=== PATIENT | female | born 1990 | race Hispanic/Latino ===

== ENCOUNTER 2021-11-28 13:20 | Emergency (ER) | payer SELFPAY ==
[~2021-11-28] VITALS: Ht 157.5 cm; Wt 117.9 kg
[2021-11-28] MEDS ORDERED: KETOROLAC TROMETHAMINE 60 MG/2 ML VIAL IM ONE (14:15)
[2021-11-28] MEDS ORDERED: KETOROLAC TROMETHAMINE 30 MG/ML VIAL ONE (14:39)
[2021-11-28] MEDS ORDERED: LIDOCAINE1 EAC1 EXT (14:48)
[2021-11-29] MEDS ORDERED: LIDOCAINE 4% PATCH TP SCH (09:00)
== END 2021-11-28 15:00 | disposition home or self-care (01) ==
LOC: FSED 13:29
DX: M54.50 Low back pain, unspecified (principal); Y93.E6 Activity, residential relocation; Y92.008 Other place in unspecified non-institutional (private) residence as the place of occurrence of the external cause
CPT/HCPCS: 81003; 81025; 96372; 99282; J1885

== ENCOUNTER 2022-10-02 08:55 | Emergency (ER) | payer OTHER ==
[~2022-10-02] VITALS: Ht 157.5 cm; Wt 131.5 kg
[~2022-10-02 08:55] MED LIST: LIDOCAINE1 EAC1 EXT
[2022-10-02] MEDS ORDERED: CEFUROXIME500 MG PO (09:58)
[2022-10-02 10:10] VITALS: BP 135/82
== END 2022-10-02 10:19 | disposition home or self-care (01) ==
LOC: FSED 09:47
DX: R35.0 Frequency of micturition (principal); N39.0 Urinary tract infection, site not specified; H54.62 Unqualified visual loss, left eye, normal vision right eye
CPT/HCPCS: 81003; 81025; 99282

== ENCOUNTER 2022-11-02 15:08 | Emergency (ER) | payer OTHER, MEDICARE ==
[~2022-11-02] VITALS: Ht 157.5 cm; Wt 118.4 kg
[~2022-11-02 15:08] MED LIST changes: +CEFUROXIME500 MG PO
[2022-11-02] MEDS ORDERED: KETOROLAC TROMETHAMINE 30 MG/ML VIAL IV STA (15:20)
[2022-11-02] MEDS ORDERED: SODIUM CHLORIDE 0.9% 1000ML 1,000 ML IV STA (15:20)
[2022-11-02 15:45] LABS: BASOPHILS % 0.4 % (0.0-1.0); EOSINOPHILS # (AUTO) 0.3 (0.0-0.4); EOSINOPHILS % 3.3 % (0.0-6.0); HEMATOCRIT 41.7 % (34.2-44.1); HEMOGLOBIN 12.8 g/dL (12.0-16.0); LYMPHOCYTES # (AUTO) 2.1 (1.0-3.2); LYMPHOCYTES % 25.5 % (18.0-39.1); MEAN CORPUSCULAR HEMOGLOBIN 26.2 pg (28-32); MEAN CORPUSCULAR HGB CONC 30.7 g/dL (31-35); MEAN CORPUSCULAR VOLUME 85.5 fL (81-99); MONOCYTES # (AUTO) 0.4 (0.2-0.8); MONOCYTES % 4.9 % (4.4-11.3); NEUTROPHILS # (AUTO) 5.3 (2.1-6.9); NEUTROPHILS % 65.7 % (38.7-80.0); PLATELET COUNT 299 x10e3/uL (140-360); RED BLOOD COUNT 4.88 x10e6/uL (3.6-5.1)
[2022-11-02 15:58] LABS: ALANINE AMINOTRANSFERASE 11 IU/L (0-55); ALBUMIN 3.3 g/dL (3.5-5.0); ALBUMIN/GLOBULIN RATIO 0.8 (0.8-2.0); ALKALINE PHOSPHATASE 75 IU/L (40-150); ANION GAP 13.9 mmol/L (8-16); BLOOD UREA NITROGEN 23 mg/dL (7-26); BUN/CREATININE RATIO 14 (6-25); CALCIUM 8.8 mg/dL (8.4-10.2); CARBON DIOXIDE 17 mmol/L (22-29); CHLORIDE 114 mmol/L (98-107); CREATININE, SERUM 1.68 mg/dL (0.57-1.11); GLUCOSE 106 mg/dL (74-118); LIPASE 29 U/L (8-78); POTASSIUM 4.9 mmol/L (3.5-5.1); SODIUM 140 mmol/L (136-145)
[2022-11-02 16:03] LABS: CLARITY,URINE SL CLOUDY (CLEAR); COLOR,URINE YELLOW (YELLOW); KETONES,URINE NEGATIVE (NEGATIVE); LEUKOCYTE ESTERASE ,URINE NEGATIVE (NEGATIVE); NITRITE,URINE NEGATIVE (NEGATIVE); PROTEIN,URINE DIPSTICK >=300 (NEGATIVE); URINE UROBILINOGEN 0.2 mg/dL (0.2 - 1)
[2022-11-02 16:12] LABS: BACTERIA,URINE MANY /HPF; EPITHELIAL CELLS,URINE RARE /LPF; RBC,URINE 0-5 /HPF (0-5)
[2022-11-02] MEDS ORDERED: ONDANSETRON ODT4 MG PO (17:24)
[2022-11-02] MEDS ORDERED: DICYCLOMINE HCL20 MG PO (17:24)
[2022-11-02 17:35] VITALS: BP 142/87
== END 2022-11-02 18:21 | disposition home or self-care (01) ==
LOC: ER 15:14
DX: R10.30 Lower abdominal pain, unspecified (principal); R11.0 Nausea; H54.62 Unqualified visual loss, left eye, normal vision right eye
CPT/HCPCS: 36415; 74177; 80053; 81001; 83690; 84702; 85025; 99284; J1885; J7030